=== PATIENT | male | born 1955 | race Caucasian/White ===

== ENCOUNTER 2021-08-22 00:46 | Day surgery (SDC) | payer MEDICARE, BC, SELFPAY ==
[2021-08-09 12:48] VITALS: BMI 31.8
--- NOTE | 2021-08-21 17:18 | PM.HPGS ---
History of Present Illness History of Present Illness Consent: Risks, benefits, and alternatives have been discussed and questions answered. Patient agrees to proceed with procedure. Chief complaint: hx of colon polyps Narrative: Tani Blanca is a 66 year old male Referred for colon cancer screening. He has a history of polyps. He had 1 polyp removed 5 years ago had polyps prior to that as well Review of Systems Review of Systems: All systems reviewed & are unremarkable except as noted in HPI and below PMFSH Past Medical History Medical History Aortic valve regurgitation Heart murmur History of melanoma Hyperlipidemia Hypertension Prediabetes Surgical History Surgical History Hx of melanoma excision Family History Family History Father Hypertension Family history of elevated blood lipids Cerebrovascular accident Acute myocardial infarction Family history of diabetes mellitus in first degree relative Mother Hypertension Family history of elevated blood lipids Family history of diabetes mellitus in first degree relative Social History Social History Smoking status: Never smoker Second hand tobacco smoke exposure: No Alcohol intake: never Substance use: never Substance use type: does not use Living arrangements: with family Meds Home Medications and Allergies Home Medications Medication Instructions Recorded Confirmed Type atorvastatin 40 mg tablet 40 mg PO DAILY #90 tablet 06/12/21 08/09/21 Rx lisinopril 20 See Rx Instructions .ROUTE 06/12/21 08/09/21 Rx mg-hydrochlorothiazide 12.5 mg .COMPLEX #90 tablet tablet nebivolol 5 mg tablet 5 mg PO DAILY #90 tablet 06/12/21 08/09/21 Rx Allergies Allergy/AdvReac Type Severity Reaction Status Date / Time No Known Allergies Allergy Verified 08/22/21 06:50 Exam Resp: Auscultation: clear to auscultation bilaterally Cardio: Rate: regular rate Rhythm: regular rhythm GI: GI Palp: Yes Soft to palpation and No Tenderness to palpation present (GI) Assessment and Plan Assessment and plan (1) Screening for colon cancer: Code(s): Z12.11 - Encounter for screening for malignant neoplasm of colon Status: Acute Assessment and Plan: Colonoscopy with possible biopsy or polypectomy or cautery or injection of substances.
[2021-08-22 06:50] VITALS: BP 134/77; PULSE 45; RESP 18; TEMP 36.1; O2SAT 97; BMI 31.6
[2021-08-22] MEDS: LACTATED RINGERS 1,000 ML 150 ML IV CONT (07:00)
--- NOTE | 2021-08-22 07:30 | WPDANESEPPF ---
Anes - Initial Pre Proc Eval Procedure: Operation Date: 08/22/21 08:00 Proposed Procedures p Screening Colonoscopy - Jeff Juarez MD Date/Time: 08/22/21 07:30 Surgeon: Jeff Juarez MD Pre Op Diagnosis: hx of colon polyps Patient Data Age: 66 Gender: M Height: 1.73 m Weight: 94.4 kg Last Vital Signs Temp 97 F L 08/22/21 06:50 Pulse 45 L 08/22/21 06:50 Resp 18 08/22/21 06:50 BP 134/77 08/22/21 06:50 Pulse Ox 97 08/22/21 06:50 Allergies Allergy/AdvReac Type Severity Reaction Status Date / Time No Known Allergies Allergy Verified 08/22/21 06:50 Home Medications Medication Instructions Recorded Confirmed Type atorvastatin 40 mg tablet 40 mg PO DAILY #90 tablet 06/12/21 08/09/21 Rx lisinopril 20 See Rx Instructions .ROUTE 06/12/21 08/09/21 Rx mg-hydrochlorothiazide 12.5 mg .COMPLEX #90 tablet tablet nebivolol 5 mg tablet 5 mg PO DAILY #90 tablet 06/12/21 08/09/21 Rx Patient hx anesthesia problems: none Family hx anesthesia problems: none Results Review: All pre-operative results and documents have been reviewed as part of the pre-operative evaluation. [facility] Past Medical History Medical History Aortic valve regurgitation Heart murmur History of melanoma Hyperlipidemia Hypertension Prediabetes Surgical History Surgical History Hx of melanoma excision Family History Family History Father Hypertension Family history of elevated blood lipids Cerebrovascular accident Acute myocardial infarction Family history of diabetes mellitus in first degree relative Mother Hypertension Family history of elevated blood lipids Family history of diabetes mellitus in first degree relative Social History Social History Smoking status: Never smoker Second hand tobacco smoke exposure: No Alcohol intake: never Substance use: never Substance use type: does not use Living arrangements: with family Anes - Eval Final PreProcedure Day of Procedure 08/22/21 07:30 Patient weight: obese Heart: regular rate and rhythm Lungs: clear to auscultation Airway: Mallampati scale class II Neurological: alert and oriented Last oral intake: >/= 8 hours ASA classification: III Emergent: no Anesthetic plan: proceed Anesthesia type and monitoring: general GIVS and standard monitoring Results Review: All pre-operative results and documents have been reviewed as part of the pre-operative evaluation. Informed Consent: The patient's anesthetic plan and its attendant risks and benefits were discussed with the patient/family/POA. Questions were solicited and answers provided to the satisfaction of the patient/family/POA.
[2021-08-22 08:12] VITALS: BP 114/73; PULSE 43; RESP 19; O2SAT 97
[2021-08-22 08:22] VITALS: BP 119/75; PULSE 44; RESP 19; O2SAT 97
[2021-08-22 08:32] VITALS: BP 127/78; PULSE 41; RESP 16; O2SAT 97
--- NOTE | 2021-08-22 08:35 | SUR.PHASEII ---
Dr. Branch discussed patient's heart rate with the patient and advised the patient to follow up with his primary Dr. Shelley
== END 2021-08-22 08:36 | disposition home or self-care (01) ==
PROVIDERS: PCP Internal Medicine; Visit Provider Internal Medicine Gastroenterology
PROC: 0DJD8ZZ Inspection of Lower Intestinal Tract, Via Natural or Artificial Opening Endoscopic (ICD-10-PCS; CPT 45378; principal; 2021-08-22 08:00)
DX: Z12.11 Encounter for screening for malignant neoplasm of colon (principal); K62.1 Rectal polyp; K57.30 Diverticulosis of large intestine without perforation or abscess without bleeding; I10 Essential (primary) hypertension; E78.5 Hyperlipidemia, unspecified; R73.03 Prediabetes; E66.9 Obesity, unspecified; Z68.31 Body mass index [BMI] 31.0-31.9, adult
CPT/HCPCS: 45380; 88305; J2704; J7120

== ENCOUNTER 2021-09-04 13:03 | Outpatient (CLI) | payer MEDICARE, BC, SELFPAY ==
--- NOTE | 2021-09-06 16:05 | WPDHOLTEREM ---
Holter/Event Monitor Holter/Event Monitor Date of procedure: 09/04/21 Holter/Event Procedure: 24 Hr Holter Monitor Indications: Bradycardia Conclusion: 1. 24 hour holter monitor on 09/04/21. 2. Predominant rhythm is sinus rhythm. HR range 38-83 bpm; average HR 55 bpm. HR at 38 bpm was at 11:34. 3. There are 943 premature supraventricular complexes and 32 supraventricular couplets. There are 4 episodes of atrial tachycardia, fastest at 106 bpm and longest lasting 11 beats. 4. No premature ventricular complexes. No ventricular tachycardia. 5. No sinoatrial or atrioventricular blocks. No significant pauses greater than 2 seconds. 6. No symptoms available for correlation.
== END 2021-09-04 13:04 | disposition home or self-care (01) ==
LOC: ANHCARD 13:05
PROVIDERS: PCP Internal Medicine; Visit Provider Internal Medicine
DX: R00.1 Bradycardia, unspecified (principal)
CPT/HCPCS: 93225; 93226

== ENCOUNTER 2025-03-14 09:31 | Outpatient (CLI) | payer MEDICARE, BC, SELFPAY ==
[2025-03-14 10:39] LABS: Hematocrit 43.5 % (42.0-52.0); Hemoglobin 14.1 g/dL (14.0-18.0); Immature Granulocyte Percent A 0.2 % (0-0.5); Lymphocytes Absolute Auto 0.98 K/mm3 (0.9-3.2); Mean Corpuscular HGB Conc 32.4 g/dl (32-36); Mean Corpuscular Hemoglobin 27.4 pg (26-34); Mean Corpuscular Volume 84.6 fl (80-100); Nucleated Red Blood Cells Absolute Auto 0.000 K/mm3 (0.0-0.012); Nucleated Red Blood Cells Perc 0.0 % (0.0-0.2); Platelet Count Result 191 k/mm3 (150-375); Red Blood Count 5.14 M/mm3 (4.6-6.20); White Blood Count 6.6 K/mm3 (4.5-10.0)
[2025-03-14 11:06] LABS: Iron 63 ug/dL (49-181)
[2025-03-14 11:07] LABS: Alanine Aminotransferase 346 U/L (6-50); Albumin Level 4.1 g/dL (3.5-5.1); Alkaline Phosphatase 1433 U/L (38-126); Aspartate Amino Transferase 320 U/L (17-59); Bilirubin,Total 4.3 mg/dL (0.2-1.3); Total Protein 8.0 g/dL (6.3-8.2)
[2025-03-14 11:10] LABS: Alanine Aminotransferase 345 U/L (6-50); Albumin Level 4.1 g/dL (3.5-5.1); Alkaline Phosphatase 1450 U/L (38-126); Anion Gap 8 mmol/L (4-12); Aspartate Amino Transferase 309 U/L (17-59); Bilirubin,Total 4.3 mg/dL (0.2-1.3); Blood Urea Nitrogen 13 mg/dL (9-20); Calcium 9.2 mg/dL (8.4-10.2); Carbon Dioxide 31 mmol/L (22-30); Chloride 100 mmol/L (98-107); Estimated Glomerular Filt Rate > 60; Glucose 93 mg/dL (65-110); Potassium 3.6 mmol/L (3.4-5.0); Sodium 139 mmol/L (137-145); Total Protein 8.0 g/dL (6.3-8.2)
[2025-03-14 11:13] LABS: Immunoglobulin G 1215 mg/dL (700-1600)
[2025-03-14 11:17] LABS: Percent Iron Saturation 21 % (20-50)
[2025-03-14 11:38] LABS: Hepatitis B Surface Antigen Negative (Negative)
[2025-03-14 11:44] LABS: HAV RESULT Negative (Negative); Hepatitis B Core IgM Result Negative (Negative)
[2025-03-14 11:45] LABS: Prostate Specific Antigen 0.8 ng/mL (< OR = 4.0)
[2025-03-14 11:47] LABS: Ferritin 516.00 ng/mL (11.1-264)
[2025-03-14 11:55] LABS: Hepatitis B Surface Anti Res Negative
[2025-03-15 05:08] LABS: Hep A Ab, Total Negative (Negative)
[2025-03-15 07:09] LABS: GGT 2414 IU/L (0-65)
[2025-03-16 04:07] LABS: ALT (SGPT) P5P 332 IU/L (0-55); AST (SGOT) P5P 298 IU/L (0-40); Alpha 2-Macroglobulins, Qn 206 mg/dL (110-276); Bilirubin, Total 3.8 mg/dL (0.0-1.2); Cholesterol, Total 184 mg/dL (100-199); GGT 2534 IU/L (0-65); Glucose 84 mg/dL (70-99); Triglycerides 133 mg/dL (0-149)
[2025-03-16 11:09] LABS: ANA by IFA Rfx Titer/Pattern Negative (.)
== END 2025-03-14 09:32 | disposition home or self-care (01) ==
PROVIDERS: PCP Nurse Practitioner Family; Referring Provider Nurse Practitioner Family; Visit Provider Nurse Practitioner
DX: Z12.5 Encounter for screening for malignant neoplasm of prostate (principal); E78.5 Hyperlipidemia, unspecified; I10 Essential (primary) hypertension; R73.03 Prediabetes; R01.1 Cardiac murmur, unspecified; R00.1 Bradycardia, unspecified; R74.8 Abnormal levels of other serum enzymes; K72.90 Hepatic failure, unspecified without coma; R63.0 Anorexia; R63.4 Abnormal weight loss; Z85.820 Personal history of malignant melanoma of skin; Z83.3 Family history of diabetes mellitus
CPT/HCPCS: 36415; 80053; 80074; 80076; 82103; 82172; 82247; 82390; 82465; 82728; 82784; 82947; 82977; 83010; 83540; 83550; 83883; 84153; 84450; 84460; 84478; 85025; 86015; 86038; 86376; 86381; 86706; 86708; 87340; G0103

== ENCOUNTER 2025-03-16 10:15 | Outpatient (CLI) | payer MEDICARE, BC, SELFPAY ==
--- NOTE | ~2025-03-16 | US_ITS ---
EXAMINATION: US abdomen limited DATE: 03/16/2025 11:14 INDICATION: Elevated liver function tests, bilirubin and alkaline phosphatase levels. TECHNIQUE: Multiple grayscale and Doppler ultrasound images of the abdomen were obtained. COMPARISON: None FINDINGS: The pancreatic head and body are normal in appearance. The pancreatic tail is not visualized. Liver has normal contour, with a smooth surface. There is increased parenchymal echogenicity and coarsened echotexture consistent with diffuse hepatic steatosis. 10 mm hyperechoic nodule in the liver statistically most likely to represent a hemangioma. There is mild central intrahepatic biliary duct dilation. Portal venous flow was seen in the hepatopetal, normal direction and has normal Doppler waveform. Mobile echogenic and shadowing gallstones within the otherwise normal-appearing gallbladder with no gallbladder wall thickening. Sonographic Wells sign was reported as negative by the underground distribution engineer.The common bile duct is dilated to 1.9 cm. The distal common bile duct is not visualized. IMPRESSION: 1. Cholelithiasis and dilation of the common bile duct 1.9 cm with mild central intrahepatic biliary ductal dilation. Given the provided laboratory abnormalities, this raises concern for possible obstructing stone or mass at the nonvisualized distal common bile duct. Would consider MRI/MRCP for further evaluation. 2. 1 cm indeterminate hyperechoic hepatic nodule statistically most likely to represent a hemangioma. This could be evaluated at the same time on the MRI/MRCP. Reviewed, dictated and finalized at location A. R AND RECOVERY SUPERVISOR IMPRESSION: 1. Cholelithiasis and dilation of the common bile duct 1.9 cm with mild central intrahepatic biliary ductal dilation. Given the provided laboratory abnormalit ies, this raises concern for possible obstructing stone or mass at the nonvisua lized distal common bile duct. Would consider MRI/MRCP for further evaluation. 2. 1 cm indeterminate hyperechoic hepatic nodule statistically most likely to r epresent a hemangioma. This could be evaluated at the same time on the MRI/MRCP .
[2025-03-16 12:25] LABS: INR 1.1; Prothrombin Time 14.1 Seconds (11.1-14.7)
[2025-03-16 12:39] LABS: Anion Gap 6 mmol/L (4-12); Blood Urea Nitrogen 15 mg/dL (9-20); Calcium 9.7 mg/dL (8.4-10.2); Carbon Dioxide 34 mmol/L (22-30); Chloride 99 mmol/L (98-107); Estimated Glomerular Filt Rate > 60; Glucose 97 mg/dL (65-110); Potassium 4.1 mmol/L (3.4-5.0); Sodium 139 mmol/L (137-145)
== END 2025-03-16 10:16 | disposition home or self-care (01) ==
PROVIDERS: PCP Nurse Practitioner Family; Visit Provider Nurse Practitioner
DX: K76.89 Other specified diseases of liver (principal); R74.8 Abnormal levels of other serum enzymes
CPT/HCPCS: 36415; 76705; 80048; 85610

== ENCOUNTER 2025-03-23 03:35 | Day surgery (SDC) | payer MEDICARE, BC, SELFPAY ==
[2025-03-18 15:06] VITALS: BMI 30.2
--- OUTSIDE RECORDS SUMMARY | 2025-03-21 10:37 | XMS_ITS | Encounter Summary ---
Author Organization [facility] Address [address] [place] [address] Care Team Providers Care Shield Runner Name Role Phone Cammie Carlson LUIS Primary Care Provider [phone] Reason for Referral * Imaging (Emergency) - Closed Specialty Diagnoses / Procedures Referred By Tg vega Referred To Contact RADIOLOGY Diagnoses Abnormal levels of other serum enzymes Epigastric pain Other specified diseases of biliary tract Procedures MRCP Alida Boyd APNP [address] [place] [address] Phone: tel: fax: Referral ID Status Reason Start Date Expiration Date Visits Re quested Visits Authorized [id number] Closed 03/18/2025 03/18/2026 1 1 O SYSTEM REPAIRER Reason for Visit * Imaging (Emergency) - Closed Specialty Diagnoses / Procedures Referred By Tg vega Referred To Contact RADIOLOGY Diagnoses Abnormal levels of other serum enzymes Epigastric pain Other specified diseases of biliary tract Procedures MRCAlida Franklin APNP [address] [place], [place] [id number] Phone: tel: fax: Referral ID Status Reason Start Date Expiration Date Visits Re quested Visits Authorized [id number] Closed 03/18/2025 03/18/2026 1 1 Encounter Details Date Type Department Care Team (Late st Contact Info) Description 03/21/2025 10:37 AM VIDEO SYSTEM REPAIRER Hospital Encounter [facility] Open MRI [address] [place] [address] Alida Boyd APNP [address] [place] [id number] Arrived Social History Tobacco Use Types Packs/Day Years Used Date Smoking Tobacco: Never Assessed Sex and Gender Information Value Date Recorded Sex Assigned at Male 03/21/2025 10:25 AM VIDEO SYSTEM REPAIRER Legal Sex Male 10:34 AM VIDEO SYSTEM REPAIRER Gender Identity Not on file Sexual Orientation Not on file documented as of this encounter Plan of Treatment Not on file documented as of this encounter Procedures Procedure Name Priority Date/Time Associated Diagnosis Comments MRCP STAT 03/21/2025 11:41 AM VIDEO SYSTEM REPAIRER Abnormal levels of other serum enzymes Epigastric pain Other specified diseases of biliary tract documented in this encounter Results * MRCP (03/21/2025 11:41 AM VIDEO SYSTEM REPAIRER) Anatomical Region Laterality Modality Abdomen Magnetic Resonan ce 03/21/2025 1:51 PM VIDEO SYSTEM REPAIRER Impressions 03/21/2025 2:01 PM VIDEO SYSTEM REPAIRER Impression: 1. A 1.3 cm ovoid stone is seen in the distal CBD. The CBD is dilated to 1.2 cm in diameter. There is mild intrahepatic biliary dilation. 2. A 2 cm stone is seen within the gallbladder. No evidence of cholecystitis. 3. A 2.1 cm cystic region is seen along the dorsal aspect of the pancreatic tail. This is nonspecific but may represent a sidebranch IPMN. Follow-up imaging with a contrast-enhanced MRI of the abdomen is recommended. Ordered By: ALIDA BOYD Interpreted By: Jose Cuba MD, 03/21/2025 1:51 PM Narrative 03/21/2025 2:01 PM VIDEO SYSTEM REPAIRER [address] [address] Examination: MRCP. Clinical Information: Elevated liver enzymes, epigastric pain, weight loss, abnormal US 03/16/2025 Comparison: Ultrasound March 16, 2025. Technique: Sequences: Multiplanar, multisequence MR images of the abdomen were obtained without contrast according to MRCP technique. Heavily T2-weighted and maximum intensity projection sequences as well as 3-D rotational reconstructions were performed on a separate dedicated workstation and submitted for review. Findings: LIVER: Morphology: Normal. Focal liver lesion(s): No distinct liver lesion is identified on this exam, within limitations of a noncontrast MRCP. GALLBLADDER AND BILIARY TREE: A 2 cm stone is present within the gallbladder. No evidence of cholecystitis. A large 1.3 cm ovoid stone is seen in the distal CBD (series 3 image 16). The CBD is dilated to 1.2 cm in diameter. There is mild intrahepatic biliary dilation. PANCREAS: A cystic region is seen along the dorsal aspect of the pancreatic tail measuring 2.1 x 1.1 x 1.8 cm (series 3 image 14 and series 8 image 15). No pancreatic ductal dilatation. SPLEEN: Normal in size and contour. ADRENAL GLANDS: Normal. KIDNEYS: No hydronephrosis. A 2.2 cm T2 hyperintense right renal cyst is noted, favored a simple cyst requiring no specific follow-up imaging per consensus guidelines. GASTROINTESTINAL: Imaged large and small bowel are normal in caliber and wall thickness. FREE FLUID: None. VASCULATURE: The abdominal aorta is normal in caliber. LYMPH NODES: No abdominal retroperitoneal or mesenteric lymphadenopathy. LOWER CHEST: Heart is normal in size. The lung bases are clear. No pleural or pericardial effusions. BONES: No suspicious osseous lesions. Procedure Note Jose Cuba MD - 03/21/[address] [address] Examination: MRCP. Clinical Information: Elevated liver enzymes, epigastric pain, weightloss, abnormal US 03/16/2025 Comparison: Ultrasound March 16, 2025. Technique: Sequences: Multiplanar, multisequence MR images of the abdomen wereobtained without contrast according to MRCP technique. Heavily T2-weightedand maximum intensity projection sequences as well as 3-D rotationalreconstructions were performed on a separate dedicated workstation andsubmitted for review. Findings: LIVER: Morphology: Normal. Focal liver lesion(s): No distinct liver lesion is identified on thisexam, within limitations of a noncontrast MRCP. GALLBLADDER AND BILIARY TREE: A 2 cm stone is present within thegallbladder. No evidence of cholecystitis. A large 1.3 cm ovoid stone isseen in the distal CBD (series 3 image 16). The CBD is dilated to 1.2 cmin diameter. There is mild intrahepatic biliary dilation. PANCREAS: A cystic region is seen along the dorsal aspect of thepancreatic tail measuring 2.1 x 1.1 x 1.8 cm (series 3 image 14 and series8 image 15). No pancreatic ductal dilatation. SPLEEN: Normal in size and contour. ADRENAL GLANDS: Normal. KIDNEYS: No hydronephrosis. A 2.2 cm T2 hyperintense right renal cyst isnoted, favored a simple cyst requiring no specific follow-up imaging perconsensus guidelines. GASTROINTESTINAL: Imaged large and small bowel are normal in caliber andwall thickness. FREE FLUID: None. VASCULATURE: The abdominal aorta is normal in caliber. LYMPH NODES: No abdominal retroperitoneal or mesenteric lymphadenopathy. LOWER CHEST: Heart is normal in size. The lung bases are clear. No pleuralor pericardial effusions. BONES: No suspicious osseous lesions. Impression: 1. A 1.3 cm ovoid stone is seen in the distal CBD. The CBD is dilated to1.2 cm in diameter. There is mild intrahepatic biliary dilation. 2. A 2 cm stone is seen within the gallbladder. No evidence ofcholecystitis. 3. A 2.1 cm cystic region is seen along the dorsal aspect of thepancreatic tail. This is nonspecific but may represent a sidebranch IPMN.Follow-up imaging with a contrast-enhanced MRI of the abdomen isrecommended. Ordered By: ALIDA BOYD Interpreted By: Jose Cuba MD, 03/21/2025 1:51 PM us Alida Boyd APNP MRI Final Result documented in this encounter Visit Diagnoses Diagnosis Abnormal levels of other serum enzymes Epigastric pain Abdominal pain, epigastric Other specified diseases of biliary tract documented in this encounter Care Teams Shield Runner Relationship Specialty Start Date End Date Cammie Carlson NP [address] [place] [address] PCP - General Nurse Practitioner Family 03/21/25 documented as of this encounter
--- OUTSIDE RECORDS SUMMARY | 2025-03-21 10:37 | XMS_ITS | Encounter Summary ---
Author Organization [facility] Address [facility] [place] [address] Care Team Providers Care Strike Warfare/Missile Systems Officer Name Role Phone Robyn Cammie LUIS Primary Care Provider [phone] Reason for Referral * Imaging (Emergency) - Closed Specialty Diagnoses / Procedures Referred By Tg vega Referred To Contact RADIOLOGY Diagnoses Abnormal levels of other serum enzymes Epigastric pain Other specified diseases of biliary tract Procedures MRCP Alida Boyd APNP [address] [place], [place] [id number] Phone: tel: fax: Referral ID Status Reason Start Date Expiration Date Visits Re quested Visits Authorized [id number] Closed 03/18/2025 03/18/2026 1 1 TE COMPUTER TERMINAL OPERATOR Reason for Visit * Imaging (Emergency) - Closed Specialty Diagnoses / Procedures Referred By Tg vega Referred To Contact RADIOLOGY Diagnoses Abnormal levels of other serum enzymes Epigastric pain Other specified diseases of biliary tract Procedures MRCAlida Franklin APNP [address] [place], [place] [id number] Phone: tel: fax: Referral ID Status Reason Start Date Expiration Date Visits Re quested Visits Authorized [id number] Closed 03/18/2025 03/18/2026 1 1 Encounter Details Date Type Department Care Team (Latest Contact Info) Description 03/21/2025 10:37 AM REMOTE COMPUTER TERMINAL OPERATOR - 03/21/2025 11:59 PM REMOTE COMPUTER TERMINAL OPERATOR Hospital Encounter [facility] [address] [place] [address] Alida Boyd, FLY [address] [place], [place] [id number] Arrived Discharge Disposition: Home or Self Care (Routine Discharge) Social History Tobacco Use Types Packs/Day Years Used Date Smoking Tobacco: Never Assessed Sex and Gender Information Value Date Recorded Sex Assigned at Male 03/21/2025 10:25 AM REMOTE COMPUTER TERMINAL OPERATOR Legal Sex Male 10:34 AM REMOTE COMPUTER TERMINAL OPERATOR Gender Identity Not on file Sexual Orientation Not on file documented as of this encounter Plan of Treatment Not on file documented as of this encounter Procedures Procedure Name Priority Date/Time Associated Diagnosis Comments MRCP STAT 03/21/2025 11:41 AM REMOTE COMPUTER TERMINAL OPERATOR Abnormal levels of other serum enzymes Epigastric pain Other specified diseases of biliary tract documented in this encounter Results * MRCP (03/21/2025 11:41 AM REMOTE COMPUTER TERMINAL OPERATOR) Anatomical Region Laterality Modality Abdomen Magnetic Resonan ce 03/21/2025 1:51 PM REMOTE COMPUTER TERMINAL OPERATOR Impressions 03/21/2025 2:01 PM REMOTE COMPUTER TERMINAL OPERATOR Impression: 1. A 1.3 cm ovoid stone [...] 03/21/2025 1:51 PM Narrative 03/21/2025 2:01 PM REMOTE COMPUTER TERMINAL OPERATOR [address] [address] Examination: MRCP. Clinical Information: Elevated liver enzymes, [...] Procedure Note Jose Cuba MD - 03/21/[address] [address] Examination: MRCP. Clinical Information: Elevated liver enzymes, [...] By: Jose Cuba MD, 03/21/2025 1:51 PM Alida BILL MRI Final Result documented in this encounter Visit Diagnoses Diagnosis Abnormal levels of other serum enzymes Epigastric pain Abdominal pain, epigastric Other specified diseases of biliary tract documented in this encounter Care Teams Strike Warfare/Missile Systems Officer Relationship Specialty Start Date End Date Cammie Carlson NP [address] [place] [address] PCP - General Nurse Practitioner Family 03/21/25 documented as of this encounter
--- OUTSIDE RECORDS SUMMARY | 2025-03-22 00:52 | XMS_ITS | Clinical Summary ---
Author Organization [facility] Address [facility] [place] [address] Care Team Providers Care Assistant Coach Name Role Phone Cammie Carlson LUIS Primary Care Provider [phone] Encounters Date Type Department Care Team Description 03/21/2025 10:37 AM LAWN MOWER OPERATOR Hospital Encounter [facility] MRI [address] [place] [address] Alida Boyd APNP Arrived 03/21/2025 Travel from Last 3 Months Social History Tobacco Use Types Packs/Day Years Used Date Smoking Tobacco: Never Assessed Sex and Gender Information Value Date Recorded Sex Assigned at Male 03/21/2025 10:25 AM LAWN MOWER OPERATOR Legal Sex Male 10:34 AM LAWN MOWER OPERATOR Gender Identity Not on file Sexual Orientation Not on file Plan of Treatment Health Maintenance Due Date Last Done Comments Colorectal Cancer Screening Colonoscopy (10 Years) 1955 Hepatitis C 06/15/1973 DTaP, Tdap and Td Vaccines ( 1 - Tdap) 06/15/1974 Pneumococcal Vaccine: 50+ Ye ars (1 of 1 - PCV) 06/15/2005 Zoster Vaccines (1 of 2) 06/15/2005 Annual Medicare Wellness Visit 06/15/2020 COVID-19 Vaccine ( - 2024-2 6 season) 2024 Influenza Adult (#1) 2025 RSV Immunization or 60+ Years (1 - 1-dose 75+ series) 06/15/2030 Hepatitis A Vaccines Aged Out No long er eligible based on patient's age to complete this topic Meningococcal B Vaccine Aged Out No l onger eligible based on patient's age to complete this topic Meningococcal Vaccine Aged Out No vj annabelle eligible based on patient's age to complete this topic RSV Immunizations Under 20 Months Aged Out No longer eligible based on patient's age to complete this topic Procedures Procedure Name Priority Date/Time Associated Diagnosis Comments MRCP STAT 03/21/2025 11:41 AM LAWN MOWER OPERATOR Abnormal levels of other serum enzymes Epigastric pain Other specified diseases of biliary tract from Last 3 Months Results * MRCP (03/21/2025 11:41 AM LAWN MOWER OPERATOR) Anatomical Region Laterality Modality Abdomen Magnetic Resonan ce 03/21/2025 1:51 PM LAWN MOWER OPERATOR Impressions 03/21/2025 2:01 PM LAWN MOWER OPERATOR Impression: 1. A 1.3 cm ovoid [...] 03/21/2025 1:51 PM Narrative 03/21/2025 2:01 PM LAWN MOWER OPERATOR [address] [address] Examination: MRCP. Clinical Information: Elevated liver enzymes, [...] Procedure Note Jose Cuba MD - 03/21/2025 [address] [place] [address] Examination: MRCP. Clinical Information: Elevated liver enzymes, [...] Jose Cuba MD, 03/21/2025 1:51 PM Alida Boyd [facility] MRI Final Result from Last 3 Months Insurance [facility] MEDICARE Care Teams Assistant Coach Relationship Specialty Start Date End Date Cammie Carlson NP [address] [place] [address] PCP - General Nurse Practitioner Family 03/21/25
--- OUTSIDE RECORDS SUMMARY | 2025-03-22 00:52 | XMS_ITS | Encounter Summary ---
Author Organization [facility] Address [address] [place] [address] Care Team Providers Care Title Closer Name Role Phone William Skinner MD Primary Care Provider [phone] Encounter Details Date Type Department Care Team (Late st Contact Info) Description 03/25/2018 Lab Requisition [facility] Care DermPath Lab [address] [place] [address] Jamal Saldaña [place] [address] Social History Tobacco Use Types Packs/Day Years Used Date Smoking Tobacco: Never Assessed Sex and Gender Information Value Date Recorded Sex Assigned at Not on file Legal Sex Male 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 Gender Identity Not on file Sexual Orientation Not on file documented as of this encounter Plan of Treatment Not on file documented as of this encounter Procedures Procedure Name Priority Date/Time Associated Diagnosis Comments DERMATOPATHOLOGY Routine 03/24/2018 12:0 0 AM BONE CHAR KILN OPERATOR documented in this encounter Results * DERMATOPATHOLOGY (03/24/2018 12:00 AM BONE CHAR KILN OPERATOR) Case Report Dermatopathology Report Case: [id number] Authorizing Provider: Jamal Saldaña MD Collected: 03/24/2018 12:00 AM Pathologist: Wero Enrique MD Received: 03/25/2018 12:58 PM Specimen: Skin, top edge left mid clavicle 8 3:52 PM BONE CHAR KILN OPERATOR DERMATOPATHOLOGY LABORATORY Final Diagnosis Specimen A. SKIN, top edge left mid clavicle: SOLAR LENTIGO (L81.4) (see microscopic description) 8 3:52 PM BONE CHAR KILN OPERATOR DERMATOPATHOLOGY LABORATORY at [address] [facility] Clinical History R/O lentigo, dys nevus 3:52 PM [facility] DERMATOPATHOLOGY LABORATORY Gross Description Specimen A: Received is one formalin filled container labeled with the patient's name and designated top edge left mid clavicle. The specimen consists of a shave biopsy measuring 11x6x1 mm. Jar 0. 3:52 PM [facility] DERMATOPATHOLOGY LABORATORY Microscopic Description Specimen A. SKIN, top edge left mid clavicle: There is orthokeratosis. There is a slight increase in epidermal thickness with lentiginous buds of hyperpigmented keratinocytes. The number of melanocytes, highlighted by MART-1/Melan-A immunohistochemical staining, is only mildly increased. In the dermis, there is basophilic degeneration of elastic fibers. 3:52 PM [facility] DERMATOPATHOLOGY LABORATORY Disclaimer An external and internal positive and negative controls are appropriate for the histochemical, immunohistochemical and immunofluorescence stain(s) in this case (if any), except where stated explicitly. The performance characteristics of the stain(s) cited in this report were developed and its performance characteristic determined by the Dermatopathology Laboratory at [facility]. These tests need not be, and therefore are not, approved by the [place] Food and Drug Administration. The tests are used for clinical purposes. Billing Codes Specimen Charges Stain Charges 08946 1 24707 1 3:52 PM [facility] DERMATOPATHOLOGY LABORATORY Embedded Images 3:52 PM [facility] DERMATOPATHOLOGY LABORATORY Pathology/Cytolog y TISSUE SPECIMEN FROM SKIN / Unknown 03/24/2018 03/25/2018 12:58 PM [facility] Jamal Saldaña MD LAB - PATHOLOGY/CYTOLOGY ORD ERABLES Final Result DERMATOPATHOLOGY LABORATORY [facility] - Department of Dermatology [facility] [facility] [address], [address]th [place] [address], [facility] [phone] documented in this encounter Visit Diagnoses Not on filedocumented in this encounter Care Teams Title Closer Relationship Specialty Start Date End Date William Skinner MD [address] [place] [phone] PCP - General 08/23/16 documented as of this encounter
--- OUTSIDE RECORDS SUMMARY | 2025-03-22 00:52 | XMS_ITS | Clinical Summary ---
Author Organization [facility] Address [address] [place] [address] Care Team Providers Care Cyber Intelligence Analyst Name Role Phone William Skinner MD Primary Care Provider [phone] [facility],non-owned Affiliates and Associated Physician Practices is amultiple site organization consisting of ambulatory clinics and hospital sitesin [place], [place], [place] and [place]. This disclosure is being madepursuant to the Care Everywhere program and may not contain all information available regarding this patient. 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 Gender Identity Not on file Sexual Orientation Not on file Plan of Treatment Health Maintenance Due Date Last Done Comments COLOGUARD (AGES 45-75) - COL ON CA SCREENING 1955 COLON MONITORING 1955 COLONOSCOPY - COLON CA SCREENING 1955 CT COLONOGRAPHY - COLON CA SCREENING 1955 Colorectal Cancer Screening 1955 FIT - COLON CA SCREENING 1955 FLEX SIG - COLON CA SCREENING 1955 LIPID TESTING 1955 HEPATITIS C SCREENING 06/11/1973 DTAP/TDAP/TD VACCINES (1 - Tdap) 06/15/1974 PNEUMOCOCCAL VACCINE 50+ (1 of 1 - PCV) 06/15/2005 ZOSTER VACCINE (1 of 2) 06/15/2005 DEPRESSION SCREENING 04/07/2024 COVID-19 VACCINE (1 - 2024-2 6 season) 2024 INFLUENZA VACCINE (#1) 2024 Respiratory Syncytial Virus (RSV) Vaccine Pt: or over 60 yrs (1 - 1-dose 75+ series) 06/15/2030 HEPATITIS B VACCINE Aged Out No longe r eligible based on patient's age to complete this topic HIB VACCINE Aged Out No longer eligi ble based on patient's age to complete this topic HPV VACCINE Aged Out No longer eligi ble based on patient's age to complete this topic MENINGOCOCCAL (Group B) VACC INE SHARED DECISION-MAKING Aged Out No longer eligibl e based on patient's age to complete this topic MENINGOCOCCAL GROUPS A/C/Y/W VACCINE Aged Out No longer eligible b ased on patient's age to complete this topic Insurance [facility] MEDICARE Care Teams Cyber Intelligence Analyst Relationship Specialty Start Date End Date William Skinner MD [address] [place] [phone] PCP - General 08/23/16
--- OUTSIDE RECORDS SUMMARY | 2025-03-22 00:52 | XMS_ITS | Encounter Summary ---
Author Organization [facility] Address [facility] [place] [address] Care Team Providers Care Email Marketing Manager Name Role Phone Cammie Carlson NP Primary Care Provider [phone] Encounter Details Date Type Department Care Team (Latest Contact Info) Description 03/21/2025 Travel Social History Tobacco Use Types Packs/Day Years Used Date Smoking Tobacco: Never Assessed Sex and Gender Information Value Date Recorded Sex Assigned at Male 03/21/2025 10:25 AM CLERICAL WAREHOUSEMAN Legal Sex Male 10:34 AM CLERICAL WAREHOUSEMAN Gender Identity Not on file Sexual Orientation Not on file documented as of this encounter Plan of Treatment Not on file documented as of this encounter Visit Diagnoses Not on filedocumented in this encounter Care Teams Email Marketing Manager Relationship Specialty Start Date End Date Cammie Carlson NP [address] [place] [address] PCP - General Nurse Practitioner Family 03/21/25 documented as of this encounter
[2025-03-23] VITALS (7 sets, daily range): BP systolic 128–144; BP diastolic 65–78; PULSE 40–43; RESP 12–18; TEMP 36–36.2; O2SAT 98–100
--- NOTE | ~2025-03-23 | XR_ITS ---
EXAMINATION: XR ERCP DATE: 03/23/2025 16:01 INDICATION: Abdominal pain. Cholelithiasis. TECHNIQUE: 2 spot fluoroscopic images of the right upper quadrant were obtained during endoscopic retrograde cholangiopancreatography (ERCP) performed by Dr. Mckeon. Radiologist was not present for the imaging or procedure. The amount of fluoroscopy time used during this procedure was 2.3 minutes. COMPARISON: None. FINDINGS: Images demonstrate endoscopic retrograde cannulation of the common bile duct with retrograde contrast injection opacifying the common bile duct and central intrahepatic biliary tree. There is dilation of the common hepatic duct with a lucent filling defect on the second image which could represent a gallstone or gas bubble. IMPRESSION: 1. Dilation of the common hepatic duct with lucent filling defect which could represent a gas bubble or gallstone. Please refer to the ERCP procedure note for additional details. Reviewed, dictated and finalized at location A. ING MACHINE OPERATOR IMPRESSION: 1. Dilation of the common hepatic duct with lucent filling defect which could r epresent a gas bubble or gallstone. Please refer to the ERCP procedure note for additional details.
--- OUTSIDE RECORDS SUMMARY | 2025-03-23 03:38 | XMS_ITS | Clinical Summary ---
Author Organization [facility] Address [facility]ly [facility] [place] [address] Care Team Providers Care Copywriter Name Role Phone Cammie Carlson LUIS Primary Care Provider [phone] Encounters Date Type Department Care Team Description 03/21/2025 10:37 AM MENTAL HEALTH SPECIALIST - 03/21/2025 11:59 PM MENTAL HEALTH SPECIALIST Hospital Encounter [facility] MRI [address] [place] [address] Alida Boyd APNP Arrived Discharge Disposition: Home or Self Care (Routine Discharge) 03/21/2025 Travel from Last 3 Months Social History Tobacco Use Types Packs/Day Years Used Date Smoking Tobacco: Never Assessed Sex and Gender Information Value Date Recorded Sex Assigned at Male 03/21/2025 10:25 AM MENTAL HEALTH SPECIALIST Legal Sex Male 10:34 AM MENTAL HEALTH SPECIALIST Gender Identity Not on file Sexual Orientation [...] Diagnosis Comments MRCP STAT 03/21/2025 11:41 AM MENTAL HEALTH SPECIALIST Abnormal levels of other serum enzymes Epigastric pain Other specified diseases of biliary tract from Last 3 Months Results * MRCP (03/21/2025 11:41 AM MENTAL HEALTH SPECIALIST) Anatomical Region Laterality Modality Abdomen Magnetic Resonan ce 03/21/2025 1:51 PM MENTAL HEALTH SPECIALIST Impressions 03/21/2025 2:01 PM MENTAL HEALTH SPECIALIST Impression: 1. A 1.3 cm ovoid stone [...] 03/21/2025 1:51 PM Narrative 03/21/2025 2:01 PM MENTAL HEALTH SPECIALIST [address] [address] Examination: MRCP. Clinical Information: Elevated liver enzymes, [...] Procedure Note Jose Cuba MD - 03/21/2025 [place] [address] Examination: MRCP. Clinical Information: Elevated liver enzymes, [...] Cuba MD, 03/21/2025 1:51 PM Alida Boyd [facility] MRI Final Result from Last 3 Months Insurance [facility] [[email or web address] MEDICARE Care Teams Copywriter Relationship Specialty Start Date End Date Cammie Carlson NP [address] [place] [address] PCP - General Nurse Practitioner Family 03/21/25
--- OUTSIDE RECORDS SUMMARY | 2025-03-23 03:38 | XMS_ITS | Encounter Summary ---
Author Organization [facility] Address [address] [facility] [place] [address] Care Team Providers Care Players Club Representative Name Role Phone William Skinner MD Primary Care Provider [phone] Encounter Details Date Type Department Care Team (Late st Contact Info) Description 03/25/2018 Lab Requisition [facility] Care DermPath Lab [address] [place] [address] Jamal Saldaña [place] [address] Social History Tobacco Use Types Packs/Day Years Used Date Smoking Tobacco: Never Assessed Sex and Gender Information Value Date Recorded Sex Assigned at Not on file Legal 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 Gender Identity Not on file Sexual Orientation Not on file documented as of this encounter Plan of Treatment Not on file documented as of this encounter Procedures Procedure Name Priority Date/Time Associated Diagnosis Comments DERMATOPATHOLOGY Routine 03/24/2018 12:0 0 AM PLAIN GOODS HEMMER documented in this encounter Results * DERMATOPATHOLOGY (03/24/2018 12:00 AM PLAIN GOODS HEMMER) Case Report Dermatopathology Report Case: [id number] Authorizing Provider: Jamal Saldaña MD Collected: 03/24/2018 12:00 AM Pathologist: Wero Enrique MD Received: 03/25/2018 12:58 PM Specimen: Skin, top edge left mid clavicle 8 3:52 PM PLAIN GOODS HEMMER DERMATOPATHOLOGY LABORATORY Final Diagnosis Specimen A. SKIN, top edge left mid clavicle: SOLAR LENTIGO (L81.4) (see microscopic description) 8 3:52 PM PLAIN GOODS HEMMER DERMATOPATHOLOGY LABORATORY at [address] [facility] Clinical History R/O lentigo, dys nevus 3:52 PM [facility] DERMATOPATHOLOGY LABORATORY Gross Description Specimen A: Received is one formalin filled container labeled with the patient's name and designated top edge left mid clavicle. The specimen consists of a shave biopsy measuring 11x6x1 mm. Jar 0. 3:52 PM [facility] DERMATOPATHOLOGY LABORATORY Microscopic Description Specimen A. SKIN, top edge left mid clavicle: There is orthokeratosis. There is a slight increase in epidermal thickness with lentiginous buds of hyperpigmented keratinocytes. The number of melanocytes, highlighted by MART-1/Melan-A immunohistochemical staining, is only mildly increased. In the dermis, there is basophilic degeneration of elastic fibers. 3:52 PM [facility] DERMATOPATHOLOGY LABORATORY Disclaimer An external and internal positive and negative controls are appropriate for the histochemical, immunohistochemical and immunofluorescence stain(s) in this case (if any), except where stated explicitly. The performance characteristics of the stain(s) cited in this report were developed and its performance characteristic determined by the Dermatopathology Laboratory at [facility]. These tests need not be, and therefore are not, approved by the [place] Food and Drug Administration. The tests are used for clinical purposes. Billing Codes Specimen Charges Stain Charges 49811 1 78337 1 3:52 PM [facility] DERMATOPATHOLOGY LABORATORY Embedded Images 3:52 PM [facility] DERMATOPATHOLOGY LABORATORY Pathology/Cytolog y TISSUE SPECIMEN FROM SKIN / Unknown 03/24/2018 03/25/2018 12:58 PM [facility] Jamal Saldaña MD LAB - PATHOLOGY/CYTOLOGY ORD ERABLES Final Result DERMATOPATHOLOGY LABORATORY [facility] - Department of Dermatology [facility] [facility], [address]th [place] [address], [facility] [phone] documented in this encounter Visit Diagnoses Not on filedocumented in this encounter Care Teams Players Club Representative Relationship Specialty Start Date End Date William Skinner MD [address] [place] [phone] PCP - General 08/23/16 documented as of this encounter
--- OUTSIDE RECORDS SUMMARY | 2025-03-23 03:38 | XMS_ITS | Clinical Summary ---
Author Organization [facility] Address [address] [place] [address] Care Team Providers Care Superintendent Track Name Role Phone William Skinner MD Primary Care Provider [phone] Source Comments [facility],non-owned Affiliates and Associated Physician Practices is amultiple site organization consisting of ambulatory clinics and hospital sitesin [place], [place], [place] and [place]. This disclosure is being madepursuant to the Care Everywhere program and may not contain all information available regarding this patient. 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
--- NOTE | 2025-03-23 06:00 | ECG_ITS ---
Test Date: 2025-03-23 12:39:29 Measurements Intervals [place] Rate: 43 P: 43 DC: 133 QRS: 63 QRSD: 98 T: 45 QT: 393 QTc: 333 Interpretive Statements SINUS BRADYCARDIA BASELINE ARTIFACT- II, III, AVR, AVL, AVF, V4-V5 ABNORMAL ECG No previous ECG available for comparison Electronically Signed On 03-23-2025 12:46:39 AGENT SPA DESK by Charly Buenrostro D.O.
[2025-03-23] MEDS: LACTATED RINGERS 1,000 ML 150 ML IV CONT (12:57)
[2025-03-23] MEDS: INDOMETHACIN 50 MG SUPP.RECT 100 MG RECTAL (14:26)
[2025-03-23] MEDS: SIMETHICONE ORAL SUSPENSION 20 MG/0.3 ML 30 ML BOTTLE 0.6 ML IRRIGATION (14:27)
--- NOTE | 2025-03-23 14:37 | P.PNAN_ITS ---
Anes - Initial Pre Proc Eval Procedure: Operation Date: 03/23/25 14:30 Proposed Procedures p Endoscopic Retro Cholangiopancreatogram - Rizwan Mckeon MD Date/Time: 03/23/25 14:37 Surgeon: Rizwan Mckeon MD Pre Op Diagnosis: Abnormal levels of other serum enzymes Patient Data Age: 69 Gender: M Height: 1.75 m Weight: 87.2 kg Allergies Allergy/AdvReac Type Severity Reaction Status Date / Time No Known Allergies Allergy Verified 03/18/25 15:05 Home Medications ?Medication ?Instructions ?Recorded ?Confirmed ?Type nebivolol 5 mg tablet (Bystolic) 5 mg PO DAILY #90 tab s 10/06/24 03/23/25 Rx atorvastatin 40 mg tablet See Rx Instructions .Route 0 12/21/24 03/23/25 Rx .COMPLEX #90 tabs lisinopril 20 See Rx Instructions .Route 1 03/23/25 Rx mg-hydrochlorothiazide 12.5 mg .COMPLEX #90 tabs tablet famotidine 40 mg tablet 40 mg PO .AM and HS #60 tabs 03/14/25 03/23/25 Rx Patient hx anesthesia problems: none Family hx anesthesia problems: none Results Review: All pre-operative results and documents have been reviewed as part of the pre- operative evaluation. [facility] Past Medical History Medical History Bradycardia Aortic valve regurgitation Heart murmur History of melanoma Prediabetes Hypertension Hyperlipidemia Surgical History Surgical History Hx of melanoma excision Family History Family History Father Hypertension Family history of elevated blood lipids Cerebrovascular accident Acute myocardial infarction Family history of diabetes mellitus in first degree relative Mother Hypertension Family history of elevated blood lipids Family history of diabetes mellitus in first degree relative Social History Social History Smoking status: Never smoker Second hand tobacco smoke exposure: No Alcohol intake: never Substance use: never Substance use type: does not use Lack of Transportation: No Lack of Food: Never True Current Housing: I Have Housing Concerned About Future Housing: No Difficulty Paying Gas/Electric Bills: No Difficulty Paying for Meds: No Currently Unemployed: No Education: High School Diploma/GED Difficulty w/ Childcare or Family Care: No Living arrangements: with family Occupation/Education: retired Gender identity (if verbalized by the patient): Male Sexual Orientation (if Verbalized by the Patient): Straight or Heterosexual Spiritual care concerns: No Agree to blood products: Yes Anes - Eval Final PreProcedure Day of Procedure 03/23/25 14:37 Patient weight: normal Lungs: normal air movement Airway: Mallampati scale class II Neurological: alert and oriented Last oral intake: >/= 8 hours ASA classification: II Emergent: no Anesthetic plan: proceed Anesthesia type and monitoring: general ETT and standard monitoring Results Review: All pre-operative results and documents have been reviewed as part of the pre- operative evaluation. 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 Informed Consent: The patient's anesthetic plan and its attendant risks and benefits were discussed with the patient/family/POA. Questions were solicited and answers provided to the satisfaction of the patient/family/POA.
--- NOTE | 2025-03-23 14:47 | PM.IMHP2 ---
H&P: HPI History of Present Illness Date/Time: 03/23/25 14:47 Chief Complaint: Abdominal pain Narrative: This patient was evaluated for abdominal pain, and was admitted over to a 1.3 cm stone in the distal common bile duct, associated with elevation of transaminases: AST 288, ALT 346, alkaline phosphatase 1433, bilirubin 4.3. This was 9 days ago. He is here for ERCP. He denies further abdominal pain crisis or fever. Review of Systems Review of Systems: All systems reviewed & are unremarkable except as noted in HPI and below PMFSH Past Medical History Medical History Bradycardia Aortic valve regurgitation Heart murmur History of melanoma Prediabetes Hypertension Hyperlipidemia Surgical History Surgical History Hx of melanoma excision Family History Family History Father Hypertension Family history of elevated blood lipids Cerebrovascular accident Acute myocardial infarction Family history of diabetes mellitus in first degree relative Mother Hypertension Family history of elevated blood lipids Family history of diabetes mellitus in first degree relative Social History Social History Smoking status: Never smoker Second hand tobacco smoke exposure: No Alcohol intake: never Substance use: never Substance use type: does not use Lack of Transportation: No Lack of Food: Never True Current Housing: I Have Housing Concerned About Future Housing: No Difficulty Paying Gas/Electric Bills: No Difficulty Paying for Meds: No Currently Unemployed: No Education: High School Diploma/GED Difficulty w/ Childcare or Family Care: No Living arrangements: with family Occupation/Education: retired Gender identity (if verbalized by the patient): Male Sexual Orientation (if Verbalized by the Patient): Straight or Heterosexual Spiritual care concerns: No Agree to blood products: Yes Meds Home Medications and Allergies Home Medications ?Medication ?Instructions ?Recorded ?Confirmed ?Type nebivolol 5 mg tablet (Bystolic) 5 mg PO DAILY #90 tabs 10/06/24 03/23/25 Rx atorvastatin 40 mg tablet See Rx Instructions .Route 12/21/24 03/23/25 Rx .COMPLEX #90 tabs lisinopril 20 See Rx Instructions .Route 10/20/25 12/17/25 Rx mg-hydrochlorothiazide 12.5 mg .COMPLEX #90 tabs tablet famotidine 40 mg tablet 40 mg PO .AM and HS #60 tabs 03/14/25 03/23/25 Rx Allergies Allergy/AdvReac Type Severity Reaction Status Date / Time No Known Allergies Allergy Verified 03/18/25 15:05 Exam Const: General: cooperative and healthy appearing Resp: Effort & Inspection: normal respiratory effort and able to speak in complete sentences Auscultation: clear to auscultation bilaterally Cardio: Rate: regular rate Rhythm: regular rhythm GI: Inspection: normal to inspection GI Palp: No No hepatosplenomegaly present Auscultation: normal bowel sounds Rectal Exam: deferred Skin: General skin exam: normal color Psych: Appearance: grossly normal Mental Status: mental status grossly normal Assessment and Plan Assessment and plan (1) Choledocholithiasis: Code(s): K80.50 - Calculus of bile duct without cholangitis or cholecystitis without obstruction Status: Acute Assessment and Plan: The patient is deemed a good candidate for the ERCP. A detailed explanation of the procedure, risks and benefits was provided to the patient. Consent signed. Will proceed. Prior Studies I have reviewed the following patient records and this information was taken into consideration when formulating the assessment and plan.: previous labs, previous ER visits, previous hospitalizations and previous clinic visits
== END 2025-03-23 17:05 | disposition home or self-care (01) ==
PROVIDERS: PCP Nurse Practitioner Family; Referring Provider Nurse Practitioner; Visit Provider Internal Medicine Gastroenterology
PROC: (CPT 43260; principal; 2025-03-23 14:30)
DX: K80.50 Calculus of bile duct without cholangitis or cholecystitis without obstruction (principal); E78.5 Hyperlipidemia, unspecified; I10 Essential (primary) hypertension; R73.03 Prediabetes; R01.1 Cardiac murmur, unspecified; R00.1 Bradycardia, unspecified; I35.1 Nonrheumatic aortic (valve) insufficiency; R94.31 Abnormal electrocardiogram [ECG] [EKG]; Z98.890 Other specified postprocedural states; Z85.820 Personal history of malignant melanoma of skin; Z82.49 Family history of ischemic heart disease and other diseases of the circulatory system
CPT/HCPCS: 43262; 43264; 74329; 93005; A9270; J0330; J1100; J2003; J2405; J2704; J7120; Q9966